=== PATIENT | female | born 1965 | race Caucasian/White ===

== ENCOUNTER → 2018-12-31 | Outpatient (REF) ==
[2018-12-31 18:58] LABS: THYROID STIMULATING HORMONE 2.25 uIU/mL (0.465-4.680)
== END ==
LOC: ZLAB.WCH 17:37
PROVIDERS: Physician Assistant
DX: Z01.89 Encounter for other specified special examinations (principal)

== ENCOUNTER → 2019-01-06 | Outpatient (REF) ==
[2019-01-06 18:22] LABS: IRON,SERUM 25 ug/dL (35-150)
[2019-01-06 18:31] LABS: TOTAL IRON BINDING CAPACITY 478 ug/dL (265-497)
[2019-01-06 18:57] LABS: FERRITIN 7 ng/mL (11-264)
== END ==
LOC: ZLAB.WCH 18:02
PROVIDERS: Internal Medicine
DX: Z01.89 Encounter for other specified special examinations (principal)

== ENCOUNTER → 2019-01-16 | Outpatient (CLI) | payer BC | LOC: COL.RAD 07:14 | DX: R22.1 Localized swelling, mass and lump, neck (principal) | CPT/HCPCS: Q9967 ==

== ENCOUNTER 2019-03-31 09:53 | Emergency (ER) | payer BC ==
[~2019-03-31] VITALS: Ht 160 cm; Wt 66.4 kg
[2019-03-31 10:42] LABS: ALBUMIN 3.3 gm/dL (3.5-5.0); BILIRUBIN,TOTAL 0.4 mg/dL (0.0-1.0); CALCIUM 8.8 mg/dL (8.4-10.2); CREATININE, serum 0.76 (0.52-1.25); POTASSIUM 3.6 mmol/L (3.4-5.0); TOTAL PROTEIN 5.9 gm/dL (6.4-8.2)
[2019-03-31] MEDS ORDERED: DETROL LA 2 MG2 MG PO (10:48)
[2019-03-31] MEDS ORDERED: SSD25 GM TP (10:49)
[2019-03-31] MEDS ORDERED: OXY IR5 MG PO (10:50)
[2019-03-31] MEDS ORDERED: SLOW FE142 MG PO (10:51)
[2019-03-31] MEDS ORDERED: PRINIVIL10 MG PO (10:51)
[2019-03-31] MEDS ORDERED: TYLENOL 325MG325 MG PO (10:52)
[2019-03-31] MEDS ORDERED: EMLA CREAM TOP (10:52)
[2019-03-31] MEDS ORDERED: COMPAZINE 110 MG/TAB PO (10:53)
[2019-03-31] MEDS ORDERED: DECADRON 4MG TAB4 MG PO (10:54)
[2019-03-31] MEDS ORDERED: ZOFRAN8 MG PO (10:55)
[2019-03-31] MEDS ORDERED: ZYPREXA10 MG PO (10:55)
[2019-03-31 10:57] LABS: MEAN CELL VOLUME 85 fl (80.0-100.0); MEAN CORPUSCULAR HGB CONC 34 g/dl (33.0-37.0); MEAN PLATELET VOLUME 9.2 fl (7.4-10.4); PLATELET COUNT 75 K/mm3 (130-400); RED BLOOD COUNT 2.81 M/mm3 (4.10-5.30)
[2019-03-31] MEDS ORDERED: IMODIUM MULTI-S1 TAB PO (10:58)
[2019-03-31] MEDS ORDERED: VTAMINC250TA (10:59)
[2019-03-31 11:01] LABS: HEMOGLOBIN 8.2 g/dl (12.5-16.0); MEAN CORPUSCULAR HEMOGLOBIN 29 pg (27.0-31.0)
[2019-03-31 11:22] LABS: BAND 20 % (0-10); EOSINOPHIL 18 % (0-4); LYMPHOCYTE 20 % (20.0-51.0); METAMYELOCYTE 10 % (0-0); NEUTROPHILS 30 % (42.0-75.2)
[2019-03-31 11:23] LABS: ANISOCYTOSIS 2+; OVALOCYTES 1+; SPHEROCYTE 1+
[2019-03-31 11:39] LABS: COLLECTION METHOD CLEAN CATCH
[2019-03-31 11:45] LABS: PH 6 (5-8); SQUAMOUS EPITHELIAL None Seen /hpf; URINE APPEARANCE Clear; URINE BACTERIA Rare /hpf; URINE BILIRUBIN Negative (NEGATIVE); URINE BLOOD 3+ (NEGATIVE); URINE COLOR Straw; URINE GLUCOSE Negative (NEGATIVE); URINE KETONE Negative (NEGATIVE); URINE LEUKOCYTE ESTERASE Negative (NEGATIVE); URINE NITRATE Negative (NEGATIVE); URINE PROTEIN(semi-quant) Negative (NEGATIVE); URINE RBC 0-2 /hpf; URINE UROBILINOGEN Negative (NEGATIVE)
[2019-03-31 12:20] VITALS: BP 117/85; PULSE 98; TEMP 98.6
== END 2019-03-31 12:22 | disposition home or self-care (01) ==
LOC: COL.ER 09:53
PROVIDERS: Emergency Medicine
DX: D70.9 Neutropenia, unspecified (principal); R53.81 Other malaise; Z98.890 Other specified postprocedural states; Z85.41 Personal history of malignant neoplasm of cervix uteri
CPT/HCPCS: J7030

== ENCOUNTER 2019-08-24 13:48 | Inpatient (IN) | payer BC ==
[~2019-08-24] VITALS: Ht 160 cm; Wt 71.0 kg
[2019-08-24] VITALS (16 sets, daily range): BP systolic 88–121; BP diastolic 53–74; PULSE 80–101; TEMP 98.1–98.4
[~2019-08-24 13:48] MED LIST: COMPAZINE 110 MG/TAB PO; DECADRON 4MG TAB4 MG PO; DETROL LA 2 MG2 MG PO; EMLA CREAM TOP; IMODIUM MULTI-S1 TAB PO; OXY IR5 MG PO; PRINIVIL10 MG PO; SLOW FE142 MG PO; SSD25 GM TP; TYLENOL 325MG325 MG PO; VTAMINC250TA; ZOFRAN8 MG PO; ZYPREXA10 MG PO
[2019-08-24 14:24] LABS: MEAN CELL VOLUME 115 fl (80.0-100.0); MEAN CORPUSCULAR HGB CONC 32 g/dl (33.0-37.0); PLATELET COUNT 55 K/mm3 (130-400); RED BLOOD COUNT 1.52 M/mm3 (4.10-5.30); REDCELL DISTRIBUTION WIDTH-CV 16.9 % (11.5-14.5)
[2019-08-24 14:31] LABS: HEMOGLOBIN 5.6 g/dl (12.5-16.0); MEAN CORPUSCULAR HEMOGLOBIN 37 pg (27.0-31.0)
[2019-08-24 14:32] LABS: HEMATOCRIT 17.4 % (37.0-47.0)
[2019-08-24 14:36] LABS: ALBUMIN 3.3 gm/dL (3.5-5.0); BILIRUBIN,TOTAL 0.2 mg/dL (0.0-1.0); CALCIUM 8.5 mg/dL (8.4-10.2); CREATININE, serum 1.54 (0.52-1.25); POTASSIUM 4.3 mmol/L (3.4-5.0); TOTAL PROTEIN 5.6 gm/dL (6.4-8.2)
[2019-08-24 14:51] LABS: BAND 5 % (0-10); LYMPHOCYTE 19 % (20.0-51.0); METAMYELOCYTE 1 % (0-0); NEUTROPHILS 69 % (42.0-75.2)
[2019-08-24 14:52] LABS: ANISOCYTOSIS 1+
[2019-08-24 14:53] LABS: PLATELET ESTIMATE DECREASED (NORMAL); SPHEROCYTE 1+
--- NOTE | 2019-08-24 16:32 | NUR ---
1600- BLOOD UNTI NUMBER [id number] STARTED AT 1600. S/SX OF REACTION EXPAINED TO PT AND FAMILY, UNDERSTANDING VERBALIZED. RN BY BESIDE FOR FIRST 30 MIN. RATE INCREASED TO 200 ML/HR AT 1630. NO S/SX OF TRANSFUSION REACTION AT THIS TIME.
--- NOTE | 2019-08-24 18:07 | NUR ---
Pt up to bathroom with stand by assist. 500 dark red/brown urine noted. Pt states this how her urine has looked since Sunday evening. Pt states she has noted some blood in peripad as well.
[2019-08-24 22:27] LABS: BASO % 0.2 % (0.0-2.0); EOS % 0.7 % (0-4.0); GRAN # 3.5 (1.4-6.5); GRAN % 78.1 % (42.2-75.2); LYMPH # 0.4 (1.2-3.4); LYMPH % 9.7 % (20.0-51.0); MEAN CORPUSCULAR HGB CONC 33 g/dl (33.0-37.0); MEAN PLATELET VOLUME 9.6 fl (7.4-10.4); MONO # 0.4 (0.1-0.6); MONO % 9.7 % (1.7-9.3); RED BLOOD COUNT 2.35 M/mm3 (4.10-5.30); REDCELL DISTRIBUTION WIDTH-CV 27.5 % (11.5-14.5)
[2019-08-24 22:29] LABS: HEMATOCRIT 22.4 % (37.0-47.0); HEMOGLOBIN 7.3 g/dl (12.5-16.0); MEAN CELL VOLUME 95 fl (80.0-100.0); MEAN CORPUSCULAR HEMOGLOBIN 31 pg (27.0-31.0)
[2019-08-24 22:31] LABS: PLATELET COUNT 48 K/mm3 (130-400)
--- NOTE | 2019-08-24 23:00 | NUR ---
Up to bathroom with standby assist, slightly unsteady. Voids large amount bloody urine. Back to bed sithout difficulty. Pt reports "my head was pounding at all when I was up this time. it was really bad at home" Pt reminded to call for assistance when needs to get up. Verbalizes understanding. Tylenol given per pt request for generalized discomfort.
[2019-08-25 03:15] VITALS: BP 119/74; PULSE 78; TEMP 98.1
[2019-08-25 06:45] VITALS: BP 118/71; PULSE 83; TEMP 98
[2019-08-25 06:51] LABS: MEAN CELL VOLUME 94 fl (80.0-100.0); MEAN CORPUSCULAR HGB CONC 33 g/dl (33.0-37.0); MEAN PLATELET VOLUME 9.5 fl (7.4-10.4); RED BLOOD COUNT 2.46 M/mm3 (4.10-5.30); REDCELL DISTRIBUTION WIDTH-CV 29.1 % (11.5-14.5)
[2019-08-25 07:04] LABS: HEMATOCRIT 23.2 % (37.0-47.0); HEMOGLOBIN 7.7 g/dl (12.5-16.0); MEAN CORPUSCULAR HEMOGLOBIN 31 pg (27.0-31.0)
[2019-08-25 07:06] LABS: PLATELET COUNT 49 K/mm3 (130-400)
--- NOTE | 2019-08-25 08:10 | NUR ---
tyson PELAYO from [facility] called this nurse and report of lab results and vital signs given. Nurse to call back with plan of care after consulting with pt's physician.
--- NOTE | 2019-08-25 09:30 | NUR ---
This nurse at bedside and pt in bathroom, catches urine in hat and dumps. Pt notified to leave urine in hat for this nurse to monitor and will need a Clean catch UA today. Pt verbalizes understanding.
[2019-08-25 09:55] LABS: BAND 7 % (0-10); EOSINOPHIL 1 % (0-4); LYMPHOCYTE 7 % (20.0-51.0); METAMYELOCYTE 1 % (0-0); NEUTROPHILS 69 % (42.0-75.2)
[2019-08-25 09:59] LABS: MICROCYTOSIS 1+; PLATELET ESTIMATE DECREASED (NORMAL)
[2019-08-25 10:00] LABS: ANISOCYTOSIS 3+; BURR CELLS 1+; OVALOCYTES 1+; POIKILOCYTOSIS 2+
[2019-08-25 10:01] LABS: POLYCHROMASIA 1+
[2019-08-25 11:45] VITALS: BP 111/64; PULSE 74; TEMP 98.2
[2019-08-25 12:18] LABS: HEMATOCRIT 25.2 % (37.0-47.0); HEMOGLOBIN 8.3 g/dl (12.5-16.0)
--- NOTE | 2019-08-25 14:30 | NUR ---
Pt up to bathroom, pt states she took the hat out of the toilet to have BM. Encouraged pt to leave hat in to catch specimen for UA.
[2019-08-25 16:00] VITALS: BP 124/76; PULSE 97; TEMP 98
--- NOTE | 2019-08-25 16:00 | NUR ---
Pt up to bathroom, voids 600cc dark blood urine. UA obtained and sent to laboratory.
[2019-08-25 16:28] LABS: COLLECTION METHOD CLEAN CATCH
[2019-08-25 16:42] LABS: PH 6 (5-8); SQUAMOUS EPITHELIAL None Seen /hpf; URINE APPEARANCE Clear; URINE BACTERIA Moderate /hpf; URINE BILIRUBIN Negative (NEGATIVE); URINE BLOOD 2+ (NEGATIVE); URINE COLOR Red; URINE GLUCOSE 1+ (NEGATIVE); URINE KETONE Negative (NEGATIVE); URINE LEUKOCYTE ESTERASE Negative (NEGATIVE); URINE NITRATE Negative (NEGATIVE); URINE PROTEIN(semi-quant) 2+ (NEGATIVE); URINE RBC >50 /hpf; URINE UROBILINOGEN Negative (NEGATIVE)
--- NOTE | 2019-08-25 17:40 | NUR ---
Dr Wright here and at bedside, plan of care reviewed with pt. Plan to do a KUB tonight and repeat labs in AM. Physician shown urine in hat of bathroom. Dr Martinez here and notified by physician of plan of care. 1800:Pt sitting up eating dinner. Nico called in X-ray to notify. 1820:Report given to Suzan PELAYO.
[2019-08-25 19:00] VITALS: BP 150/66; PULSE 82; TEMP 98.7
[2019-08-26 01:30] VITALS: BP 110/66; PULSE 84; TEMP 98.3
[2019-08-26 06:59] LABS: ALBUMIN 3.2 gm/dL (3.5-5.0); BILIRUBIN,TOTAL 0.2 mg/dL (0.0-1.0); CALCIUM 8.8 mg/dL (8.4-10.2); CREATININE, serum 1.24 (0.52-1.25); POTASSIUM 4.6 mmol/L (3.4-5.0); TOTAL PROTEIN 5.4 gm/dL (6.4-8.2)
[2019-08-26 07:04] LABS: HEMATOCRIT 24.8 % (37.0-47.0); HEMOGLOBIN 8.2 g/dl (12.5-16.0); MEAN CELL VOLUME 95 fl (80.0-100.0); MEAN CORPUSCULAR HEMOGLOBIN 31 pg (27.0-31.0); MEAN CORPUSCULAR HGB CONC 33 g/dl (33.0-37.0); MEAN PLATELET VOLUME 9.1 fl (7.4-10.4); RED BLOOD COUNT 2.62 M/mm3 (4.10-5.30); REDCELL DISTRIBUTION WIDTH-CV 28.6 % (11.5-14.5)
[2019-08-26 07:08] LABS: PLATELET COUNT 46 K/mm3 (130-400)
[2019-08-26 07:49] VITALS: BP 132/63; PULSE 76; TEMP 98.5
[2019-08-26 08:56] LABS: BAND 4 % (0-10); EOSINOPHIL 1 % (0-4); LYMPHOCYTE 11 % (20.0-51.0); METAMYELOCYTE 2 % (0-0); MYELOCYTE 1 % (0-0); NEUTROPHILS 78 % (42.0-75.2); OVALOCYTES 1+; PLATELET ESTIMATE DECREASED (NORMAL)
--- NOTE | 2019-08-26 09:05 | NUR ---
Several visit attempts; Patient sleeping, [employer] left card letting patient know of the availability of [facility] at [facility].
--- NOTE | 2019-08-26 11:30 | NUR ---
Port a cath deaccessed at this time, patient tolerated well. Discharge education reviewed. Patient states understanding, denies questions or concerns. escorted off unit via wheel chair
== END 2019-08-26 11:45 | disposition home or self-care (01) | DRG 699 ==
LOC: COL.ER 13:48 → OB 14:56
PROVIDERS: Family Medicine; Urology; ADMIT Obstetrics & Gynecology
DX: T83.83XA Hemorrhage due to genitourinary prosthetic devices, implants and grafts, initial encounter (principal); E87.1 Hypo-osmolality and hyponatremia; R31.0 Gross hematuria; C53.9 Malignant neoplasm of cervix uteri, unspecified; D69.59 Other secondary thrombocytopenia; T45.1X5A Adverse effect of antineoplastic and immunosuppressive drugs, initial encounter; D70.9 Neutropenia, unspecified; D70.1 Agranulocytosis secondary to cancer chemotherapy; I10 Essential (primary) hypertension; Z79.891 Long term (current) use of opiate analgesic
CPT/HCPCS: J1644; J7030; P9016

== ENCOUNTER → 2019-09-25 | Outpatient (CLI) | payer BC ==
[2019-09-25 14:34] LABS: MEAN CELL VOLUME 107 fl (80.0-100.0); MEAN CORPUSCULAR HGB CONC 32 g/dl (33.0-37.0); MEAN PLATELET VOLUME 10.6 fl (7.4-10.4); PLATELET COUNT 61 K/mm3 (130-400); RED BLOOD COUNT 2.71 M/mm3 (4.10-5.30); REDCELL DISTRIBUTION WIDTH-CV 23.4 % (11.5-14.5)
[2019-09-25 14:36] LABS: HEMOGLOBIN 9.3 g/dl (12.5-16.0); MEAN CORPUSCULAR HEMOGLOBIN 34 pg (27.0-31.0)
[2019-09-25 14:39] LABS: BILIRUBIN,TOTAL 0.2 mg/dL (0.0-1.0); CALCIUM 9.2 mg/dL (8.4-10.2); CREATININE, serum 0.91 (0.52-1.25); POTASSIUM 4.2 mmol/L (3.4-5.0); TOTAL PROTEIN 6.8 gm/dL (6.4-8.2)
[2019-09-25 15:37] LABS: BAND 23 % (0-10); LYMPHOCYTE 6 % (20.0-51.0); METAMYELOCYTE 1 % (0-0); NEUTROPHILS 67 % (42.0-75.2); PLATELET ESTIMATE DECREASED (NORMAL)
[2019-09-25 15:39] LABS: ANISOCYTOSIS 2+; OVALOCYTES 2+; SCHISTOCYTES 1+
== END ==
LOC: COL.LAB 13:50
PROVIDERS: Obstetrics & Gynecology Gynecologic Oncology
DX: C53.9 Malignant neoplasm of cervix uteri, unspecified (principal)

== ENCOUNTER → 2019-10-02 | Outpatient (CLI) | payer BC ==
[2019-10-02 14:34] LABS: BASO % 0.2 % (0.0-2.0); EOS % 0.8 % (0-4.0); GRAN # 3.8 (1.4-6.5); GRAN % 79.7 % (42.2-75.2); LYMPH # 0.5 (1.2-3.4); MEAN CELL VOLUME 108 fl (80.0-100.0); MEAN CORPUSCULAR HGB CONC 32 g/dl (33.0-37.0); MEAN PLATELET VOLUME 9.9 fl (7.4-10.4); MONO # 0.4 (0.1-0.6); MONO % 8.7 % (1.7-9.3); PLATELET COUNT 52 K/mm3 (130-400); RED BLOOD COUNT 2.69 M/mm3 (4.10-5.30); REDCELL DISTRIBUTION WIDTH-CV 22.7 % (11.5-14.5)
[2019-10-02 14:35] LABS: HEMOGLOBIN 9.3 g/dl (12.5-16.0); MEAN CORPUSCULAR HEMOGLOBIN 35 pg (27.0-31.0)
[2019-10-02 15:04] LABS: ALBUMIN 4.1 gm/dL (3.5-5.0); BILIRUBIN,TOTAL 0.3 mg/dL (0.0-1.0); CALCIUM 9.4 mg/dL (8.4-10.2); CREATININE, serum 0.91 (0.52-1.25); TOTAL PROTEIN 6.7 gm/dL (6.4-8.2)
[2019-10-02 22:13] LABS: URINE 24 HOUR CREATININE 0.9 gm/24 hr (0.8-1.8)
== END ==
LOC: COL.LAB 13:53
PROVIDERS: Obstetrics & Gynecology Gynecologic Oncology
DX: C53.9 Malignant neoplasm of cervix uteri, unspecified (principal)

== ENCOUNTER 2019-10-05 14:53 | Emergency (ER) | payer BC ==
[~2019-10-05] VITALS: Ht 160 cm; Wt 64.5 kg
[2019-10-05 16:23] LABS: BASO % 0.2 % (0.0-2.0); EOS % 0.4 % (0-4.0); GRAN # 4.2 (1.4-6.5); GRAN % 82.8 % (42.2-75.2); LYMPH # 0.4 (1.2-3.4); LYMPH % 7.1 % (20.0-51.0); MEAN CELL VOLUME 106 fl (80.0-100.0); MEAN CORPUSCULAR HGB CONC 33 g/dl (33.0-37.0); MEAN PLATELET VOLUME 10.3 fl (7.4-10.4); MONO # 0.5 (0.1-0.6); MONO % 9.3 % (1.7-9.3); RED BLOOD COUNT 2.55 M/mm3 (4.10-5.30)
[2019-10-05 16:27] LABS: PROTHROMBIN TIME 11.2 SECONDS (9.7-12.8)
[2019-10-05 16:29] LABS: HEMATOCRIT 27.1 % (37.0-47.0); HEMOGLOBIN 8.8 g/dl (12.5-16.0); MEAN CORPUSCULAR HEMOGLOBIN 35 pg (27.0-31.0); PARTIAL THROMBOPLASTIN TIME 28.7 SECONDS (26.0-37.0)
[2019-10-05 16:30] LABS: PLATELET COUNT 35 K/mm3 (130-400)
[2019-10-05 16:34] LABS: COLLECTION METHOD CLEAN CATCH
[2019-10-05 16:35] LABS: ALANINE AMINOTRANSFERASE 26 U/L (9-52); ALKALINE PHOSPHATASE 59 U/L (50-136); ANION GAP 8 mmol/L (7-16); AST,SGOT 23 U/L (15-37); BILIRUBIN,TOTAL 0.3 mg/dL (0.0-1.0); BLOOD UREA NITROGEN 14 mg/dL (7-17); C-REACTIVE PROTEIN < 0.5 mg/dL (0.0-0.9); CALCIUM 9.3 mg/dL (8.4-10.2); CARBON DIOXIDE 26 mmol/L (22-30); CHLORIDE 99 mmol/L (98-107); GLUCOSE 110 mg/dL (74-106); POTASSIUM 4.4 mmol/L (3.4-5.0); SODIUM 133 mmol/L (137-145); TOTAL PROTEIN 6.5 gm/dL (6.4-8.2)
[2019-10-05 16:41] LABS: PH 6 (5-8); SQUAMOUS EPITHELIAL None Seen /hpf; URINE APPEARANCE Clear; URINE BACTERIA None Seen /hpf; URINE BILIRUBIN Negative (NEGATIVE); URINE BLOOD 3+ (NEGATIVE); URINE COLOR Yellow; URINE GLUCOSE Negative (NEGATIVE); URINE KETONE Negative (NEGATIVE); URINE LEUKOCYTE ESTERASE Trace (NEGATIVE); URINE NITRATE Negative (NEGATIVE); URINE PROTEIN(semi-quant) 1+ (NEGATIVE); URINE RBC 0-2 /hpf; URINE UROBILINOGEN Negative (NEGATIVE)
[2019-10-05 18:23] VITALS: BP 132/89; PULSE 82; TEMP 98.4
== END 2019-10-05 18:27 | disposition home or self-care (01) ==
LOC: COL.ER 14:53
PROVIDERS: Emergency Medicine
DX: K92.2 Gastrointestinal hemorrhage, unspecified (principal); I10 Essential (primary) hypertension; D64.9 Anemia, unspecified; D69.6 Thrombocytopenia, unspecified; C53.9 Malignant neoplasm of cervix uteri, unspecified

== ENCOUNTER → 2019-10-07 | Outpatient (CLI) | payer BC ==
[2019-10-07 12:36] LABS: MEAN CELL VOLUME 109 fl (80.0-100.0); MEAN CORPUSCULAR HGB CONC 32 g/dl (33.0-37.0); MEAN PLATELET VOLUME 9.8 fl (7.4-10.4); RED BLOOD COUNT 2.45 M/mm3 (4.10-5.30); REDCELL DISTRIBUTION WIDTH-CV 21.9 % (11.5-14.5)
[2019-10-07 12:48] LABS: BILIRUBIN,TOTAL 0.2 mg/dL (0.0-1.0); CALCIUM 9.4 mg/dL (8.4-10.2); CREATININE, serum 0.95 (0.52-1.25); POTASSIUM 4.2 mmol/L (3.4-5.0); TOTAL PROTEIN 6.5 gm/dL (6.4-8.2)
[2019-10-07 13:12] LABS: BAND 14 % (0-10); HYPOCHROMIA 2+; LYMPHOCYTE 23 % (20.0-51.0); NEUTROPHILS 52 % (42.0-75.2); PLATELET ESTIMATE DECREASED (NORMAL)
[2019-10-07 13:13] LABS: ANISOCYTOSIS 1+; TEAR DROP CELLS 1+
[2019-10-07 13:15] LABS: OVALOCYTES 1+
[2019-10-07 13:19] LABS: HEMATOCRIT 26.7 % (37.0-47.0); HEMOGLOBIN 8.5 g/dl (12.5-16.0); MEAN CORPUSCULAR HEMOGLOBIN 35 pg (27.0-31.0)
[2019-10-07 13:21] LABS: PLATELET COUNT 33 K/mm3 (130-400)
== END ==
LOC: COL.LAB 11:55
PROVIDERS: Obstetrics & Gynecology Gynecologic Oncology
DX: C53.9 Malignant neoplasm of cervix uteri, unspecified (principal)

== ENCOUNTER → 2019-10-09 | Outpatient (CLI) | payer BC ==
[2019-10-09 12:03] LABS: MEAN CELL VOLUME 109 fl (80.0-100.0); MEAN CORPUSCULAR HGB CONC 32 g/dl (33.0-37.0); MEAN PLATELET VOLUME 10.5 fl (7.4-10.4); RED BLOOD COUNT 2.63 M/mm3 (4.10-5.30); REDCELL DISTRIBUTION WIDTH-CV 21.7 % (11.5-14.5)
[2019-10-09 12:12] LABS: ALBUMIN 4.2 gm/dL (3.5-5.0); BILIRUBIN,TOTAL 0.3 mg/dL (0.0-1.0); CALCIUM 9.6 mg/dL (8.4-10.2); CREATININE, serum 0.96 (0.52-1.25); POTASSIUM 4.1 mmol/L (3.4-5.0); TOTAL PROTEIN 6.7 gm/dL (6.4-8.2)
[2019-10-09 13:51] LABS: HEMATOCRIT 28.6 % (37.0-47.0); HEMOGLOBIN 9.2 g/dl (12.5-16.0); MEAN CORPUSCULAR HEMOGLOBIN 35 pg (27.0-31.0)
[2019-10-09 13:55] LABS: PLATELET COUNT 41 K/mm3 (130-400)
[2019-10-09 13:57] LABS: BAND 11 % (0-10); EOSINOPHIL 3 % (0-4); LYMPHOCYTE 12 % (20.0-51.0); NEUTROPHILS 64 % (42.0-75.2)
[2019-10-09 13:58] LABS: ANISOCYTOSIS 1+; OVALOCYTES 1+; PLATELET ESTIMATE DECREASED (NORMAL)
== END ==
LOC: COL.LAB 11:42
PROVIDERS: Obstetrics & Gynecology Gynecologic Oncology
DX: C53.9 Malignant neoplasm of cervix uteri, unspecified (principal); R39.9 Unspecified symptoms and signs involving the genitourinary system

== ENCOUNTER → 2020-12-20 | Outpatient (REF) ==
[2020-12-20 10:50] LABS: CLOSTRIDIUM DIFF A/B NEG; CLOSTRIDIUM DIFF A/B INTERP No C.diff present
== END ==
LOC: ZLAB.WCH 09:42
PROVIDERS: Family Medicine
DX: Z01.89 Encounter for other specified special examinations (principal)